=== PATIENT | female | born 1985 | race Caucasian/White ===

== ENCOUNTER → 2024-03-10 13:04 | Outpatient (REF) | payer OTHER, SELFPAY | LOC: RAD 13:04 | PROVIDERS: ATTENDING PHYSICIAN Nurse Practitioner Adult Health | DX: M79.669 Pain in unspecified lower leg (principal) | CPT/HCPCS: 93971 ==

== ENCOUNTER → 2024-03-27 07:47 | Outpatient (REF) | payer OTHER, SELFPAY | LOC: HWRAD 07:47 | PROVIDERS: ATTENDING PHYSICIAN Nurse Practitioner Adult Health | DX: J45.42 Moderate persistent asthma with status asthmaticus (principal) | CPT/HCPCS: 71260; Q9967 ==

== ENCOUNTER → 2024-07-12 14:07 | Outpatient (REF) | payer OTHER, SELFPAY | LOC: HWRAD 14:07 | PROVIDERS: ATTENDING PHYSICIAN Internal Medicine Critical Care Medicine; FAMILY PHYSICIAN Nurse Practitioner Adult Health | DX: R06.02 Shortness of breath (principal) | CPT/HCPCS: 71046 ==

== ENCOUNTER → 2025-02-26 17:16 | Outpatient (REF) | payer OTHER, SELFPAY | LOC: RAD 17:16 | PROVIDERS: ATTENDING PHYSICIAN Obstetrics & Gynecology; FAMILY PHYSICIAN Nurse Practitioner Adult Health | DX: N91.1 Secondary amenorrhea (principal) | CPT/HCPCS: 76801 ==

== ENCOUNTER → 2025-03-14 13:38 | Outpatient (REF) | payer OTHER, SELFPAY | LOC: PNTC 13:38 | PROVIDERS: ATTENDING PHYSICIAN Obstetrics & Gynecology | DX: Z36.0 Encounter for antenatal screening for chromosomal anomalies (principal); Z36.82 Encounter for antenatal screening for nuchal translucency | CPT/HCPCS: 76801; 76813 ==

== ENCOUNTER → 2025-05-07 07:14 | Outpatient (REF) | payer OTHER, SELFPAY | LOC: PNTC 07:14 | PROVIDERS: ATTENDING PHYSICIAN Obstetrics & Gynecology | DX: O09.529 Supervision of elderly multigravida, unspecified trimester (principal) | CPT/HCPCS: 76811; 76817 ==

== ENCOUNTER → 2025-06-25 10:14 | Outpatient (REF) | payer OTHER, SELFPAY | LOC: PNTC 10:14 | PROVIDERS: ATTENDING PHYSICIAN Obstetrics & Gynecology | DX: Z03.72 Encounter for suspected placental problem ruled out (principal) | CPT/HCPCS: 76816; 76817 ==

== ENCOUNTER → 2025-07-23 06:49 | Outpatient (REF) | payer OTHER, SELFPAY | LOC: PNTC 06:49 | PROVIDERS: ATTENDING PHYSICIAN Obstetrics & Gynecology | DX: O44.40 Low lying placenta NOS or without hemorrhage, unspecified trimester (principal) | CPT/HCPCS: 76816; 76817 ==

== ENCOUNTER → 2025-08-20 06:47 | Outpatient (REF) | payer OTHER, SELFPAY | LOC: PNTC 06:47 | PROVIDERS: ATTENDING PHYSICIAN Obstetrics & Gynecology | DX: O44.42 Low lying placenta NOS or without hemorrhage, second trimester (principal) | CPT/HCPCS: 76816; 76817 ==

== ENCOUNTER → 2025-10-31 10:27 | Outpatient (REF) | payer OTHER, SELFPAY | LOC: WDC 10:27 | PROVIDERS: ATTENDING PHYSICIAN Obstetrics & Gynecology; FAMILY PHYSICIAN Nurse Practitioner Adult Health | DX: N63.12 Unspecified lump in the right breast, upper inner quadrant (principal) | CPT/HCPCS: 76642 ==